=== PATIENT | female | born 1965 | race Caucasian/White ===

== ENCOUNTER 2017-09-17 16:59 | Emergency (ER) | payer OTHER ==
[~2017-09-17] VITALS: Ht 157.5 cm; Wt 69.0 kg
[2017-09-17 18:03] LABS: BASOPHILS % 0.6 % (0.0-2.0); EOSINOPHILS % 2.1 % (0.0-5.0); HEMATOCRIT. 40.1 % (36.0-48.0); HEMOGLOBIN. 13.5 g/dL (12.0-16.0); LYMPHOCYTES % 38.7 % (20.0-50.0); MEAN CORPUSCULAR HEMOGLOBIN 29.4 pg (28.0-32.0); MEAN CORPUSCULAR VOLUME 87.3 fL (81.0-99.0); MEAN PLATELET VOLUME 11.1 fl (7.4-10.4); MONOCYTES % 7.4 % (2.0-8.0); NEUTROPHILS % 51.2 % (40.0-76.0); PLATELET 198 x1000/uL (130-400); RED BLOOD CELL COUNT 4.59 mill/uL (4.2-5.4); RED CELL DISTRIBUTION WIDTH 13.2 % (11.6-14.6)
[2017-09-17 18:05] LABS: CHLORIDE 104 mEq/L (98-107)
[2017-09-17 18:07] LABS: INR 1.1; PROTHROMBIN TIME 10.9 sec (9.4-11.6)
[2017-09-17 18:12] LABS: TROPONIN I < 0.02 ng/mL (0.00-0.04)
[2017-09-17] MEDS ORDERED: FAMOTIDINE 20MG/2ML VIAL IV STA (19:09)
[2017-09-17] MEDS ORDERED: MAGNESIUM/ALUMINUM HYDROXIDE/SIMETHICONE 30ML UDC PO STA (19:09)
[2017-09-17] MEDS ORDERED: ONDANSETRON HCL 4MG/2ML VIAL IV STA (19:09)
[2017-09-17] MEDS ORDERED: METOCLOPRAMIDE HCL 10MG/2ML VIAL IV ONE (19:30)
[2017-09-17] MEDS ORDERED: DIPHENHYDRAMINE 50MG/ML VIAL IV ONE (19:30)
[2017-09-17] MEDS ORDERED: SODIUM CHLORIDE 0.9% 1,000 ML IV ONE (19:30)
[2017-09-17 21:15] VITALS: BP 101/51
== END 2017-09-17 21:20 | disposition home or self-care (01) ==
LOC: EDBD 16:59 → ER 17:51
DX: R10.13 Epigastric pain (principal); R07.89 Other chest pain; I10 Essential (primary) hypertension; R11.0 Nausea; G43.909 Migraine, unspecified, not intractable, without status migrainosus; Z90.49 Acquired absence of other specified parts of digestive tract
CPT/HCPCS: 36415; 71045; 80053; 83880; 84484; 85025; 85610; 93005; 96361; 96374; 96375; 99285; J1200; J2405; J2765; J3490; J7030